=== PATIENT | female | born 1995 | race Caucasian/White ===

== ENCOUNTER 2017-12-24 23:46 | Outpatient (CLI) | payer OTHER ==
[2017-12-25 00:52] LABS: URINE AMPHETAMINES SCREEN NEGATIVE; URINE BARBITURATES SCREEN NEGATIVE; URINE BENZODIAZEPINES SCREEN NEGATIVE; URINE COCAINE SCREEN NEGATIVE; URINE MARIJUANA (THC) SCREEN NEGATIVE; URINE METHADONE SCREEN NEGATIVE; URINE PHENCYCLIDINE SCREEN NEGATIVE
[2017-12-25 00:55] LABS: AMORPHOUS SEDIMENT,URINE TRACE /HPF; APPEARANCE,URINE CLOUDY; BILIRUBIN,URINE NEGATIVE (NEGATIVE); COLOR,URINE YELLOW; GLUCOSE, URINE 50 mg/dL (NEGATIVE); KETONES,URINE NEGATIVE (NEGATIVE); LEUKOCYTE ESTERASE,URINE NEGATIVE (NEGATIVE); NITRITE,URINE NEGATIVE (NEGATIVE); PROTEIN,URINE NEGATIVE (NEGATIVE); URINE SPECIFIC GRAVITY 1.021
[2017-12-25] MEDS: RINGERS SOLUTION,LACTATED 1,000 ML IV PRN ×2 (01:02→01:31)
[2017-12-25] MEDS ORDERED: TERBUTALINE SULFATE INJ/PF 1 MG/1 ML SDV SUBCUT ONE (01:37)
[2017-12-25] MEDS ORDERED: TERBUTALINE SULFATE INJ/PF 1 MG/1 ML SDV ONE (01:42)
--- NOTE | 2017-12-25 02:12 | Non Stress Test Report ---
Non Stress Test Datetime Report Generated by CPN: 12/25/2017 02:12 DEMOGRAPHIC Test Number: 1 EGA NST: 34.0 INDICATION Indication for Study: Ordered by Provider URINE RESULTS Urine Protein, NST: Negative Urine Ketones - NST: Negative Urine Glucose - NST: Positive Urine Blood - NST: Positive MONITORING Monitor Explained: Monitor Explained; Test Explained; Patient Verbalized Understanding Time on Monitor: 12/25/2017 00:15 Time off Monitor: 12/25/2017 01:00 NST Duration: 45 NST INTERVENTIONS NST Interventions: PO Hydration; IV Fluids; Reposition Patient Physician Notified NST: Dr. Sanchez BABY A: [id number] BABY A Movement : Present Contraction Frequency : 2-3 FHR Baseline : 135 Accelerations : 15X15 Decelerations : None Variability : Moderate 6-25bpm NST Review: Meets Criteria for Reactive NST NST Review and Verified By : GÉNESIS Donis NST Results: Reactive NST REPORT Report Trigger: Send Report
--- NOTE | 2017-12-25 02:50 | RADIOLOGY REPORT (SQ) ---
EXAM DESCRIPTION: US LIMITED COMPLETED DATE/TME: 12/25/2017 00:00 CLINICAL HISTORY: 22 years Female, sono for presentation, cervical length due to PTL Comparison: None. TECHNIQUE/LIMITATION: Targeted OB sonogram for requested parameters only. FINDINGS: Presentation: Vertex Cervical length: 4.3-cm. Closed appearance. Nabothian cysts. heart rate: 132 bpm. IMPRESSION: Targeted OB sonogram for requested parameters
[2017-12-25 03:56] LABS: CHLAM PCR NOT DETECTED (NOT DETECT); GON PCR NOT DETECTED (NOT DETECT)
== END 2017-12-25 05:14 | disposition home or self-care (01) ==
LOC: LC 23:46
PROVIDERS: ATTEND Obstetrics & Gynecology Gynecology
PROC: 4A1HXCZ Monitoring of Products of Conception, Cardiac Rate, External Approach (ICD-10-PCS; principal; 2017-12-24)
DX: O47.03 False labor before 37 completed weeks of gestation, third trimester (principal); O99.283 Endocrine, nutritional and metabolic diseases complicating pregnancy, third trimester; E86.0 Dehydration; Z3A.34 34 weeks gestation of pregnancy
CPT/HCPCS: 59025; 94760; 81001; 87081; 80307; 87491; 87591; 76815; J3105

== ENCOUNTER 2017-12-25 21:15 | Outpatient (CLI) | payer OTHER ==
[2017-12-25 21:51] LABS: APPEARANCE,URINE SLIGHTLY-CLOUDY; BILIRUBIN,URINE NEGATIVE (NEGATIVE); COLOR,URINE YELLOW; GLUCOSE, URINE 150 mg/dL (NEGATIVE); KETONES,URINE NEGATIVE (NEGATIVE); LEUKOCYTE ESTERASE,URINE TRACE (NEGATIVE); NITRITE,URINE NEGATIVE (NEGATIVE); PROTEIN,URINE NEGATIVE (NEGATIVE); URINE SPECIFIC GRAVITY 1.027
[2017-12-25 22:15] LABS: URINE AMPHETAMINES SCREEN NEGATIVE; URINE BARBITURATES SCREEN NEGATIVE; URINE BENZODIAZEPINES SCREEN NEGATIVE; URINE COCAINE SCREEN NEGATIVE; URINE MARIJUANA (THC) SCREEN NEGATIVE; URINE METHADONE SCREEN NEGATIVE; URINE PHENCYCLIDINE SCREEN NEGATIVE
[2017-12-25] MEDS ORDERED: HYDROXYZINE PAMOATE 50 MG CAPSULE ONE (22:43)
[2017-12-25] MEDS ORDERED: HYDROXYZINE PAMOATE 50 MG CAPSULE PO ONE (22:44)
--- NOTE | 2017-12-25 22:57 | Non Stress Test Report ---
Non Stress Test Datetime Report Generated by CPN: 12/25/2017 22:57 DEMOGRAPHIC Test Number: 2 EGA NST: 34.0 INDICATION Indication for Study: Ordered by Provider URINE RESULTS Urine Protein, NST: Negative Urine Ketones - NST: Negative Urine Glucose - NST: Positive Urine Blood - NST: Negative MONITORING Monitor Explained: Monitor Explained; Test Explained; Patient Verbalized Understanding Time on Monitor: 12/25/2017 21:35 Time off Monitor: 12/25/2017 22:43 NST Duration: 68 NST INTERVENTIONS NST Interventions: PO Hydration; Reposition Patient Physician Notified NST: Dr. Sherman BABY A: [id number] BABY A Movement : Present Contraction Frequency : Irregular FHR Baseline : 135 Accelerations : 15X15 Decelerations : None Variability : Moderate 6-25bpm NST Review: Meets Criteria for Reactive NST NST Review and Verified By : GÉNESIS Donis NST Results: Reactive NST REPORT Report Trigger: Send Report
== END 2017-12-25 22:53 | disposition home or self-care (01) ==
LOC: LC 21:15
PROVIDERS: ATTEND Obstetrics & Gynecology
PROC: 4A1HXCZ Monitoring of Products of Conception, Cardiac Rate, External Approach (ICD-10-PCS; principal; 2017-12-25)
DX: O47.03 False labor before 37 completed weeks of gestation, third trimester (principal); O99.283 Endocrine, nutritional and metabolic diseases complicating pregnancy, third trimester; E86.0 Dehydration; Z3A.34 34 weeks gestation of pregnancy
CPT/HCPCS: 59025; 80307; 81001

== ENCOUNTER 2017-12-29 01:26 | Outpatient (CLI) | payer OTHER ==
[2017-12-29 01:58] LABS: APPEARANCE,URINE CLOUDY; BILIRUBIN,URINE NEGATIVE (NEGATIVE); COLOR,URINE YELLOW; GLUCOSE, URINE NEGATIVE (NEGATIVE); KETONES,URINE NEGATIVE (NEGATIVE); LEUKOCYTE ESTERASE,URINE NEGATIVE (NEGATIVE); NITRITE,URINE NEGATIVE (NEGATIVE); PROTEIN,URINE NEGATIVE (NEGATIVE); URINE SPECIFIC GRAVITY 1.015; UROBILINOGEN,URINE NEGATIVE mg/dL (<2.0)
[2017-12-29 02:12] LABS: URINE AMPHETAMINES SCREEN NEGATIVE; URINE BARBITURATES SCREEN NEGATIVE; URINE BENZODIAZEPINES SCREEN NEGATIVE; URINE COCAINE SCREEN NEGATIVE; URINE MARIJUANA (THC) SCREEN NEGATIVE; URINE METHADONE SCREEN NEGATIVE; URINE PHENCYCLIDINE SCREEN NEGATIVE
--- NOTE | 2017-12-29 04:00 | Non Stress Test Report ---
Non Stress Test Datetime Report Generated by CPN: 12/29/2017 04:00 DEMOGRAPHIC EGA NST: 34.4 INDICATION Indication for Study: Ordered by Provider MONITORING Monitor Explained: Monitor Explained; Test Explained; Patient Verbalized Understanding Time on Monitor: 12/29/2017 01:40 Time off Monitor: 12/29/2017 03:47 NST Duration: 127 NST INTERVENTIONS NST Interventions: PO Hydration; IV Fluids; Reposition Patient Physician Notified NST: Dr. Sanchez BABY A: [id number] BABY A Movement : Present Contraction Frequency : 2-10 FHR Baseline : 120 Accelerations : 15X15 Decelerations : None Variability : Moderate 6-25bpm NST Review: Meets Criteria for Reactive NST NST Review and Verified By : Marco Álvarez RN Results: Reactive NST REPORT Report Trigger: Send Report
== END 2017-12-29 03:52 | disposition home or self-care (01) ==
LOC: LC 01:26
PROVIDERS: ATTEND Obstetrics & Gynecology Gynecology
PROC: 4A1HXCZ Monitoring of Products of Conception, Cardiac Rate, External Approach (ICD-10-PCS; principal; 2017-12-29)
DX: O47.03 False labor before 37 completed weeks of gestation, third trimester (principal); Z3A.34 34 weeks gestation of pregnancy
CPT/HCPCS: 59025; 80307; 81001

== ENCOUNTER 2018-01-03 20:00 | Outpatient (CLI) | payer OTHER ==
[2018-01-03 20:37] LABS: APPEARANCE,URINE CLOUDY; BILIRUBIN,URINE NEGATIVE (NEGATIVE); COLOR,URINE YELLOW; GLUCOSE, URINE >=500 mg/dL (NEGATIVE); KETONES,URINE NEGATIVE (NEGATIVE); LEUKOCYTE ESTERASE,URINE MODERATE (NEGATIVE); NITRITE,URINE NEGATIVE (NEGATIVE); PROTEIN,URINE 30 mg/dL (NEGATIVE); URINE SPECIFIC GRAVITY 1.018
[2018-01-03 21:02] LABS: URINE AMPHETAMINES SCREEN NEGATIVE; URINE BARBITURATES SCREEN NEGATIVE; URINE BENZODIAZEPINES SCREEN NEGATIVE; URINE COCAINE SCREEN NEGATIVE; URINE MARIJUANA (THC) SCREEN NEGATIVE; URINE METHADONE SCREEN NEGATIVE; URINE PHENCYCLIDINE SCREEN NEGATIVE
--- NOTE | 2018-01-03 21:38 | Non Stress Test Report ---
Non Stress Test Datetime Report Generated by CPN: 01/03/2018 21:37 DEMOGRAPHIC Test Number: 3 EGA NST: 35.2 INDICATION Indication for Study: Ordered by Provider URINE RESULTS Urine Protein, NST: Positive Urine Ketones - NST: Negative Urine Glucose - NST: Positive Urine Blood - NST: Negative MONITORING Monitor Explained: Monitor Explained; Test Explained; Patient Verbalized Understanding Time on Monitor: 01/03/2018 20:13 Time off Monitor: 01/03/2018 20:59 NST Duration: 46 NST INTERVENTIONS NST Interventions: PO Hydration; Reposition Patient Physician Notified NST: Dr. Sears BABY A: [id number] BABY A Movement : Present Contraction Frequency : Irregular FHR Baseline : 150 Accelerations : 15X15 Decelerations : None Variability : Moderate 6-25bpm NST Review: Meets Criteria for Reactive NST NST Review and Verified By : Tatyana Gomez RN NST Results: Reactive NST REPORT Report Trigger: Send Report
== END 2018-01-03 21:04 | disposition home or self-care (01) ==
LOC: LC 20:00
PROVIDERS: ATTEND Student in an Organized Health Care Education/Training Program
PROC: 4A1HXCZ Monitoring of Products of Conception, Cardiac Rate, External Approach (ICD-10-PCS; principal; 2018-01-03)
DX: O47.03 False labor before 37 completed weeks of gestation, third trimester (principal); O26.893 Other specified pregnancy related conditions, third trimester; R07.89 Other chest pain; R06.02 Shortness of breath; Z3A.35 35 weeks gestation of pregnancy
CPT/HCPCS: 59025; 80307; 81005; 94760

== ENCOUNTER 2018-01-03 21:15 | Emergency (ER) | payer OTHER ==
--- NOTE | 2018-01-03 22:29 | ER Document Report ---
ED Medical Screen (RME) - General Chief Complaint: Chest Tightness Stated Complaint: CHEST TIGHTNESS Time Seen by Provider: 01/03/18 22:25 Notes: 22-year-old female, 35 weeks , was upstairs having a labor check because of having contractions but was sent down for evaluation because she began having episodes where she would suddenly feel tightness in her chest, lightheaded, she would feel like her heart was racing and like she felt a little bit short of breath. This lasts for 1-2 minutes and then resolves. Patient states she has had several of these today. Denies history of the same. No current symptoms. Patient does not think that the symptoms coincide with a uterine contraction but she is not certain. Denies smoking, recreational drugs, or any medical history other than 1 previous . TRAVEL OUTSIDE OF THE [place] IN LAST 30 DAYS: No - Related Data Allergies/Adverse Reactions: No Known Allergies Allergy (Verified 01/03/18 21:38) Physical Exam - Vital signs Vitals: Temp Pulse Resp BP Pulse Ox 97.9 F 109 H 14 111/66 98 01/03/18 21:25 01/03/18 21:25 01/03/18 21:25 01/03/18 21:25 01/03/18 21:25 - Cardiovascular Rhythm: Regular, Tachycardia - Borderline tachycardia Heart sounds: Normal auscultation, S1 appreciated, S2 appreciated Course - Vital Signs Vital signs: Temp Pulse Resp BP Pulse Ox 97.9 F 109 H 14 111/66 98 01/03/18 21:25 01/03/18 21:25 01/03/18 21:25 01/03/18 21:25 01/03/18 21:25 Doctor's Discharge - Discharge Referrals: TENZIN ABBASI MD [Primary Care Provider] - Follow up as needed
[2018-01-03 23:36] LABS: ABSOLUTE LYMPHOCYTES (AUTO) 1.5 10^3/uL (0.5-4.7); ABSOLUTE MONOCYTES (AUTO) 1.3 10^3/uL (0.1-1.4); ABSOLUTE NEUT (AUTO) 9.4 10^3/uL (1.7-8.2); BASOPHILS % (AUTO) 0.3 % (0-2); EOSINOPHILS % (AUTO) 0.4 % (0-6); HEMATOCRIT 32.9 % (36.0-47.0); LYMPHOCYTES % (AUTO) 11.9 % (13-45); MEAN CORPUSCULAR HGB CONC 33.5 g/dL (32.0-36.0); MEAN CORPUSCULAR VOLUME 78 fl (80-97); MONOCYTES % (AUTO) 10.3 % (3-13); PLATELET COUNT 243 10^3/uL (150-450); RED BLOOD COUNT 4.24 10^6/uL (3.72-5.28); SEGMENTED NEUTROPHILS % (AUTO) 77.1 % (42-78); TOTAL CELLS COUNTED % (AUTO) 100 %; WHITE BLOOD COUNT 12.2 10^3/uL (4.0-10.5)
[2018-01-03 23:42] LABS: ALANINE AMINOTRANSFERASE 15 U/L (9-52); ALBUMIN 3.1 g/dL (3.5-5.0); ALKALINE PHOSPHATASE 62 U/L (38-126); ANION GAP 10 (5-19); ASPARTATE AMINO TRANSFERASE 15 U/L (14-36); BILIRUBIN,DIRECT 0.2 mg/dL (0.0-0.4); BILIRUBIN,TOTAL 0.3 mg/dL (0.2-1.3); BLOOD UREA NITROGEN 3 mg/dL (7-20); CALCIUM 8.9 mg/dL (8.4-10.2); CARBON DIOXIDE 20 mmol/L (22-30); CHLORIDE 108 mmol/L (98-107); GLUCOSE 102 mg/dL (75-110); POTASSIUM 3.9 mmol/L (3.6-5.0); SODIUM 138.1 mmol/L (137-145)
[2018-01-03 23:59] LABS: FREE T4 (FREE THYROXINE) 0.8 ng/dL (0.78-2.19)
[2018-01-04 00:13] LABS: THYROID STIMULATING HORMONE 1.02 uIU/mL (0.47-4.68)
--- NOTE | 2018-01-04 00:58 | RADIOLOGY REPORT (SQ) ---
PROCEDURE: XR CHEST 1 VIEW HISTORY: cp COMPARISON: None TECHNIQUE: Single projection of the chest was done. This study was done on 01/04/2018 at 12:42 AM FINDINGS: Bilateral metallic nipple rings are noted . There are no discrete airspace infiltrates, pneumothoraces or pleural effusions. The pulmonary vascularity is normal. The cardiomediastinal silhouette is unremarkable for patient's age and sex. IMPRESSION: There is no acute pleural-parenchymal process seen in the imaged lung yancey. Location of Interpretation: [facility]
--- NOTE | 2018-01-04 01:09 | ER Document Report ---
ED General - General Chief Complaint: Chest Tightness Stated Complaint: CHEST TIGHTNESS Time Seen by Provider: 01/03/18 22:25 Notes: Patient is a 22 year old female at 35 weeks who presents with complaints of intermittent chest tightness and continuous shortness of breath that started shortly after she woke up today. The patient was seen in labor and delivery and then transferred down to the emergency department after being cleared from a labor perspective. The patient reports that the chest tightness is intermittent, tightening, stabbing sensation to her central chest. These episodes last for several minutes and then spontaneously resolved. She does however note that her shortness of breath has otherwise been constant and is not necessarily related to her chest discomfort. She denies any unilateral leg swelling, hemoptysis or syncope. She denies any history of similar symptoms during this or her previous . She states that she did not have the symptoms yesterday. She has no history of DVT or pulmonary embolus. She denies any vaginal bleeding, vaginal discharge, but states that she has had nausea. TRAVEL OUTSIDE OF THE [place] IN LAST 30 DAYS: No - Related Data Allergies/Adverse Reactions: No Known Allergies Allergy (Verified 01/03/18 21:38) Past Medical History - General Information source: Patient - Social History Smoking Status: Former Smoker Chew tobacco use (# tins/day): No Frequency of alcohol use: None Drug Abuse: None Lives with: Spouse/Significant other Family History: Reviewed & Not Pertinent Patient has suicidal ideation: No Patient has homicidal ideation: No Renal/ Medical History: Denies: Hx Peritoneal Dialysis Past Surgical History: Reports: Hx Genitourinary Surgery - cyst removed, Hx Tonsillectomy Review of Systems - Review of Systems Notes: Constitutional: Negative for fever. HENT: Negative for sore throat. Eyes: Negative for visual changes. Cardiovascular: Positive for chest pain. Respiratory: Positive for shortness of breath. Gastrointestinal: Negative for abdominal pain, vomiting or diarrhea. Genitourinary: Negative for dysuria. Musculoskeletal: Negative for back pain. Skin: Negative for rash. Neurological: Negative for headaches, weakness or numbness. 10 point ROS negative except as marked above and in HPI. Physical Exam - Vital signs Vitals: Temp Pulse Resp BP Pulse Ox 97.9 F 109 H 14 111/66 98 01/03/18 21:25 01/03/18 21:25 01/03/18 21:25 01/03/18 21:25 01/03/18 21:25 Interpretation: Tachycardic - Resolved at the time of my assessment Notes: PHYSICAL EXAMINATION: GENERAL: Well-appearing, well-nourished and in no acute distress. HEAD: Atraumatic, normocephalic. EYES: Pupils equal round and reactive to light, extraocular movements intact, sclera anicteric, conjunctiva are normal. ENT: nares patent, oropharynx clear without exudates. Moist mucous membranes. NECK: Normal range of motion, supple without lymphadenopathy LUNGS: Breath sounds clear to auscultation bilaterally and equal. No wheezes rales or rhonchi. HEART: Regular rate and rhythm without murmurs ABDOMEN: Soft, gravid uterus, nontender, normoactive bowel sounds. No guarding , no rebound. No masses appreciated. EXTREMITIES: Normal range of motion, no pitting or edema. No cyanosis. NEUROLOGICAL: No focal neurological deficits. Moves all extremities spontaneously and on command. PSYCH: Normal mood, normal affect. SKIN: Warm, Dry, normal turgor, no rashes or lesions noted. Course - Re-evaluation Re-evalutation: 01/04/18 01:07 Patient presents with complaints of shortness of breath with intermittent associated chest tightness in the context of being 35 weeks . The patient was noted to be tachycardic in triage and during her time during her labor check in labor and delivery. On assessment, the patient is overall nontoxic in appearance, heart rate is currently 96 bpm counted myself at the bedside. She has no unilateral leg swelling. However, the patient is extremely elevated in terms of risk for pulmonary embolus and states repeatedly during my assessment without prompting that she is quite short of breath, feels like she cannot catch her breath, and also notes that she can hardly walk to the restroom without becoming short of breath. She denies ever having felt like this during this or her previous . Her workup including EKG, chest x-ray, labs are otherwise benign. At this point I am quite concerned for the possibility of acute pulmonary embolus given lack of an alternative consideration for why she is having symptoms. She has no abdominal discomfort to suggest a biliary pathology. LFTs are normal. No infectious process identified on chest x-ray and no evidence of a pneumothorax. EKG likewise unremarkable and ACS does not fit with her clinical history. Patient has consented to CTA, understands the risks of radiation exposure to both her as well as her unborn child. 01/04/18 04:09 CTA without any evidence of acute pulmonary embolus although the radiologist is clear to state that he believes there was an adequate enhancement of the pulmonary arterial system. Patient's tachycardia has remained resolved. I have informed the patient of the findings of the CT scan and have encouraged rapid return to the emergency department for any new or worsening symptoms. At this time will discharge with return precautions and follow-up recommendations. Verbal discharge instructions given a the bedside and opportunity for questions given. Medication warnings reviewed. Patient is in agreement with this plan and has verbalized understanding of return precautions and the need for primary care follow-up in the next 24-72 hours. - Vital Signs Vital signs: Temp Pulse Resp BP Pulse Ox 98.4 F 88 20 103/58 L 97 01/04/18 03:12 01/04/18 03:12 01/04/18 03:12 01/04/18 03:12 01/04/18 03:12 - Laboratory Result Diagrams: 01/03/18 22:55 01/03/18 22:55 Laboratory results interpreted by me: 01/03/18 01/03/18 22:55 22:55 WBC 12.2 H Hgb 11.0 L Hct 32.9 L MCV 78 L MCH 26.0 L Lymphocytes % 11.9 L Absolute Neutrophils 9.4 H Chloride 108 H Carbon Dioxide 20 L BUN 3 L Creatinine 0.37 L Total Protein 6.0 L Albumin 3.1 L - Diagnostic Test Radiology reviewed: Image reviewed, Reports reviewed Radiology results interpreted by me: 01/04/18 01:06 Chest x-ray: No acute infiltrate or pneumothorax - EKG Interpretation by Me Additional EKG results interpreted by me: 01/04/18 01:07 Sinus rhythm. Rate 96. No ST elevations or depressions. QTC is 430. Discharge - Discharge Clinical Impression: Shortness of breath, Third trimester Chest pain Qualifiers: Chest pain type: unspecified Qualified Code(s): R07.9 - Chest pain, unspecified Condition: Stable Disposition: HOME, SELF-CARE Admitting Provider: Pediatric Hospitalist Additional Instructions: You were seen today for concerns of shortness of breath and chest discomfort. Your workup today is normal without any obvious cause for why you are having recurrent symptoms. This may be related to your . CT scan of your chest does not show any evidence of a blood clot in your lungs. Please return to the ED immediately if you have worsening of your symptoms, vomiting, being coughing blood, pass out, or have any other symptoms that are concerning to you. Referrals: TENZIN ABBASI MD [Primary Care Provider] - Follow up as needed
--- NOTE | 2018-01-04 04:06 | RADIOLOGY REPORT (SQ) ---
EXAM DESCRIPTION: CT CHEST ANGIOGRAPHY WITHOUT THEN WITH IV CONTRAST COMPLETED DATE/TME: 01/04/2018 01:03 CLINICAL HISTORY: 22 years Female, eval pe. 35 WKS , SOB. Comparison: CR, 01/04/2018 at 12:42 AM Technique: IV contrast. Coronal and sagittal reformat. 3d reconstruction. This exam was performed according to our departmental dose-optimization program, which includes automated exposure control, adjustment of the mA and/or kV according to patient size and/or use of iterative reconstruction technique.[facility]: Dose Right [facility]: CareDose [facility]: Dose Right [facility]: Teradose 4D [facility]: BDA LIMITATIONS: There is inadequate enhancement of the pulmonary arterial system. Findings: There is inadequate enhancement of the pulmonary arterial system significantly decreasing sensitivity of this exam. There is no gross evidence of pulmonary embolus. Consider repeat, alternative, or surveillance investigation as clinically warranted.No right ventricular strain. Clear lungs. Inferior neck, axillae, mediastinum, lungs, airway, lymphatics, heart, vasculature, CTA of the aorta, upper abdomen, and musculoskeleton appear unremarkable. Impression: 1. There is inadequate enhancement of the pulmonary arterial system significantly decreasing sensitivity of this exam. There is no gross evidence of pulmonary embolus. Consider repeat, alternative, or surveillance investigation as clinically warranted. 2. No acute cardiopulmonary findings.
[2018-01-04 04:40] VITALS: BP 108/64
--- NOTE | 2018-01-04 07:29 | EKG REPORT ---
SEVERITY:- NORMAL ECG - SINUS RHYTHM : Confirmed by: Luis Samuels MD 04-Jan-2018 07:29:33
== END 2018-01-04 04:40 | disposition home or self-care (01) ==
LOC: ER 21:15
DX: O26.93 Pregnancy related conditions, unspecified, third trimester (principal); R07.9 Chest pain, unspecified; R06.02 Shortness of breath; Z3A.35 35 weeks gestation of pregnancy
CPT/HCPCS: 36415; 71045; 71275; 80053; 83735; 84439; 84443; 85025; 93005; 93010; 99285

== ENCOUNTER 2018-01-08 02:41 | Outpatient (CLI) | payer OTHER ==
[2018-01-08 03:08] LABS: APPEARANCE,URINE CLOUDY; BILIRUBIN,URINE NEGATIVE (NEGATIVE); COLOR,URINE YELLOW; GLUCOSE, URINE NEGATIVE (NEGATIVE); KETONES,URINE NEGATIVE (NEGATIVE); LEUKOCYTE ESTERASE,URINE SMALL (NEGATIVE); NITRITE,URINE NEGATIVE (NEGATIVE); PROTEIN,URINE NEGATIVE (NEGATIVE); URINE SPECIFIC GRAVITY 1.017
[2018-01-08 03:29] LABS: URINE AMPHETAMINES SCREEN NEGATIVE; URINE BARBITURATES SCREEN NEGATIVE; URINE BENZODIAZEPINES SCREEN NEGATIVE; URINE COCAINE SCREEN NEGATIVE; URINE MARIJUANA (THC) SCREEN NEGATIVE; URINE METHADONE SCREEN NEGATIVE; URINE PHENCYCLIDINE SCREEN NEGATIVE
--- NOTE | 2018-01-08 04:40 | Non Stress Test Report ---
Non Stress Test Datetime Report Generated by CPN: 01/08/2018 04:40 DEMOGRAPHIC EGA NST: 36.0 INDICATION Indication for Study: labor URINE RESULTS Urine Protein, NST: Negative Urine Ketones - NST: Negative Urine Glucose - NST: Negative Urine Blood - NST: Negative MONITORING Monitor Explained: Monitor Explained; Test Explained; Patient Verbalized Understanding Time on Monitor: 01/08/2018 02:56 Time off Monitor: 01/08/2018 04:21 NST Duration: 85 NST INTERVENTIONS NST Interventions: None Physician Notified NST: Dr. Sanchez BABY A: [id number] BABY A Movement : Present Contraction Frequency : 3-5 FHR Baseline : 155 Accelerations : 15X15 Decelerations : None Variability : Moderate 6-25bpm NST Review: Meets Criteria for Reactive NST NST Review and Verified By : GÉNESIS Donis NST Results: Reactive NST REPORT Report Trigger: Send Report
== END 2018-01-08 04:33 | disposition home or self-care (01) ==
LOC: LC 02:41
PROVIDERS: ATTEND Obstetrics & Gynecology Gynecology
PROC: 4A1HXCZ Monitoring of Products of Conception, Cardiac Rate, External Approach (ICD-10-PCS; principal; 2018-01-08)
DX: O47.03 False labor before 37 completed weeks of gestation, third trimester (principal); Z3A.36 36 weeks gestation of pregnancy
CPT/HCPCS: 59025; 80307; 81005; 94760

== ENCOUNTER 2018-01-09 08:44 | Outpatient (CLI) | payer OTHER ==
[2018-01-09 09:29] LABS: APPEARANCE,URINE CLEAR; BILIRUBIN,URINE NEGATIVE (NEGATIVE); COLOR,URINE YELLOW; GLUCOSE, URINE NEGATIVE (NEGATIVE); KETONES,URINE NEGATIVE (NEGATIVE); LEUKOCYTE ESTERASE,URINE SMALL (NEGATIVE); NITRITE,URINE NEGATIVE (NEGATIVE); PROTEIN,URINE NEGATIVE (NEGATIVE); URINE SPECIFIC GRAVITY 1.008; UROBILINOGEN,URINE NEGATIVE mg/dL (<2.0)
[2018-01-09 09:41] LABS: URINE AMPHETAMINES SCREEN NEGATIVE; URINE BARBITURATES SCREEN NEGATIVE; URINE BENZODIAZEPINES SCREEN NEGATIVE; URINE COCAINE SCREEN NEGATIVE; URINE MARIJUANA (THC) SCREEN NEGATIVE; URINE METHADONE SCREEN NEGATIVE; URINE PHENCYCLIDINE SCREEN NEGATIVE
--- NOTE | 2018-01-09 10:16 | Non Stress Test Report ---
Non Stress Test Datetime Report Generated by CPN: 01/09/2018 10:15 DEMOGRAPHIC Test Number: 1 EGA NST: 36.1 INDICATION Indication for Study: Ordered by Provider Indication for Study (NST) Other: LC MONITORING Monitor Explained: Monitor Explained; Test Explained; Patient Verbalized Understanding Time on Monitor: 01/09/2018 08:57 Time off Monitor: 01/09/2018 09:51 NST Duration: 54 NST INTERVENTIONS NST Interventions: PO Hydration Physician Notified NST: Sherman BABY A: [id number] BABY A Movement : Present Contraction Frequency : irregular FHR Baseline : 130 Accelerations : 15X15 Decelerations : None Variability : Moderate 6-25bpm NST Review: Meets Criteria for Reactive NST NST Review and Verified By : D Bellavance RN NST Results: Reactive NST REPORT Report Trigger: Send Report
== END 2018-01-09 10:19 | disposition home or self-care (01) ==
LOC: LC 08:44
PROVIDERS: ATTEND Student in an Organized Health Care Education/Training Program
PROC: 4A1HXCZ Monitoring of Products of Conception, Cardiac Rate, External Approach (ICD-10-PCS; principal; 2018-01-09)
DX: O47.03 False labor before 37 completed weeks of gestation, third trimester (principal); Z3A.36 36 weeks gestation of pregnancy
CPT/HCPCS: 59025; 80307; 81001

== ENCOUNTER 2018-01-11 00:58 | Outpatient (CLI) | payer OTHER ==
[2018-01-11 01:47] LABS: APPEARANCE,URINE CLOUDY; BILIRUBIN,URINE NEGATIVE (NEGATIVE); COLOR,URINE YELLOW; GLUCOSE, URINE 50 mg/dL (NEGATIVE); KETONES,URINE NEGATIVE (NEGATIVE); LEUKOCYTE ESTERASE,URINE SMALL (NEGATIVE); NITRITE,URINE NEGATIVE (NEGATIVE); PROTEIN,URINE NEGATIVE (NEGATIVE)
[2018-01-11 02:54] LABS: URINE AMPHETAMINES SCREEN NEGATIVE; URINE BARBITURATES SCREEN NEGATIVE; URINE BENZODIAZEPINES SCREEN NEGATIVE; URINE COCAINE SCREEN NEGATIVE; URINE MARIJUANA (THC) SCREEN NEGATIVE; URINE METHADONE SCREEN NEGATIVE; URINE PHENCYCLIDINE SCREEN NEGATIVE
== END 2018-01-11 02:09 | disposition home or self-care (01) ==
LOC: LC 00:58
PROVIDERS: ATTEND Obstetrics & Gynecology
PROC: 4A1HXCZ Monitoring of Products of Conception, Cardiac Rate, External Approach (ICD-10-PCS; principal; 2018-01-11)
DX: O47.03 False labor before 37 completed weeks of gestation, third trimester (principal); Z3A.36 36 weeks gestation of pregnancy
CPT/HCPCS: 59025; 80307; 81005; 84112

== ENCOUNTER 2018-01-12 16:56 | Outpatient (CLI) | payer OTHER ==
--- NOTE | 2018-01-12 17:11 | Non Stress Test Report ---
Non Stress Test Datetime Report Generated by CPN: 01/12/2018 17:11 DEMOGRAPHIC EGA NST: 36.3 INDICATION Indication for Study: Ordered by Provider Indication for Study (NST) Other: LC MONITORING Monitor Explained: Monitor Explained; Test Explained; Patient Verbalized Understanding Time on Monitor: 01/11/2018 01:18 Time off Monitor: 01/11/2018 02:03 NST Duration: 45 NST INTERVENTIONS NST Interventions: PO Hydration; Reposition Patient Physician Notified NST: Talavera BABY A: [id number] BABY A Movement : Present Contraction Frequency : x2 FHR Baseline : 130 Accelerations : 15X15 Decelerations : None Variability : Moderate 6-25bpm NST Review: Meets Criteria for Reactive NST NST Review and Verified By : GÉNESIS Donis NST Results: Reactive NST REPORT Report Trigger: Send Report
[2018-01-12 17:50] LABS: APPEARANCE,URINE SLIGHTLY-CLOUDY; BILIRUBIN,URINE NEGATIVE (NEGATIVE); COLOR,URINE YELLOW; GLUCOSE, URINE NEGATIVE (NEGATIVE); KETONES,URINE NEGATIVE (NEGATIVE); LEUKOCYTE ESTERASE,URINE SMALL (NEGATIVE); NITRITE,URINE NEGATIVE (NEGATIVE); PROTEIN,URINE NEGATIVE (NEGATIVE); URINE SPECIFIC GRAVITY 1.011; UROBILINOGEN,URINE NEGATIVE mg/dL (<2.0)
[2018-01-12 18:04] LABS: URINE AMPHETAMINES SCREEN NEGATIVE; URINE BARBITURATES SCREEN NEGATIVE; URINE BENZODIAZEPINES SCREEN NEGATIVE; URINE COCAINE SCREEN NEGATIVE; URINE MARIJUANA (THC) SCREEN NEGATIVE; URINE METHADONE SCREEN NEGATIVE; URINE PHENCYCLIDINE SCREEN NEGATIVE
--- NOTE | 2018-01-12 19:35 | Non Stress Test Report ---
Non Stress Test Datetime Report Generated by CPN: 01/12/2018 19:35 DEMOGRAPHIC EGA NST: 36.4 INDICATION Indication for Study: Ordered by Provider MONITORING Monitor Explained: Monitor Explained; Test Explained; Patient Verbalized Understanding Time on Monitor: 01/12/2018 17:22 Time off Monitor: 01/12/2018 19:04 NST Duration: 102 NST INTERVENTIONS NST Interventions: None Physician Notified NST: Dr. Vivek BABY A Movement : Present Contraction Frequency : 1-3 FHR Baseline : 135 Accelerations : 15X15 Decelerations : None Variability : Moderate 6-25bpm NST Review: Meets Criteria for Reactive NST NST Review and Verified By : Argelia Limon RN NST Results: Reactive NST REPORT Report Trigger: Send Report
== END 2018-01-12 19:35 | disposition home or self-care (01) ==
LOC: LC 16:56
PROVIDERS: ATTEND Obstetrics & Gynecology
PROC: 4A1HXCZ Monitoring of Products of Conception, Cardiac Rate, External Approach (ICD-10-PCS; principal; 2018-01-12)
DX: O36.8130 Decreased fetal movements, third trimester, not applicable or unspecified (principal); Z3A.36 36 weeks gestation of pregnancy
CPT/HCPCS: 59025; 80307; 81001

== ENCOUNTER 2018-01-17 10:16 | Outpatient (CLI) | payer OTHER ==
[2018-01-17] MEDS ORDERED: RINGERS SOLUTION,LACTATED 1,000 ML IV ONE ×2 (10:39→12:00)
[2018-01-17] MEDS ORDERED: ONDANSETRON ODT 4 MG TAB (6 TAB/ER DISP) PO PRN (10:40)
[2018-01-17] MEDS ORDERED: ONDANSETRON 4 MG TAB.RAPDIS ONE (10:43)
[2018-01-17] MEDS ORDERED: ONDANSETRON 4 MG TAB.RAPDIS PO ONE (11:00)
--- NOTE | 2018-01-17 11:30 | Non Stress Test Report ---
Non Stress Test Datetime Report Generated by CPN: 01/17/2018 11:30 DEMOGRAPHIC EGA NST: 37.2 INDICATION Indication for Study: Decreased Movement; Ordered by Provider MONITORING Monitor Explained: Monitor Explained; Test Explained; Patient Verbalized Understanding Time on Monitor: 01/17/2018 10:31 Time off Monitor: 01/17/2018 11:24 NST Duration: 53 NST INTERVENTIONS NST Interventions: PO Hydration; Reposition Patient Physician Notified NST: Poole, CNM BABY A: [id number] BABY A Movement : Present Contraction Frequency : 3-4 with irritability FHR Baseline : 135 Accelerations : 15X15 Decelerations : None Variability : Moderate 6-25bpm NST Review: Meets Criteria for Reactive NST NST Review and Verified By : ERICKSON Pack Results: Reactive NST REPORT Report Trigger: Send Report
[2018-01-17 11:36] LABS: AMORPHOUS SEDIMENT,URINE 1+ /HPF; APPEARANCE,URINE TURBID; BILIRUBIN,URINE SMALL (NEGATIVE); COLOR,URINE YELLOW; GLUCOSE, URINE 50 mg/dL (NEGATIVE); KETONES,URINE NEGATIVE (NEGATIVE); LEUKOCYTE ESTERASE,URINE SMALL (NEGATIVE); NITRITE,URINE NEGATIVE (NEGATIVE); PROTEIN,URINE 100 mg/dL (NEGATIVE); URINE SPECIFIC GRAVITY 1.032
[2018-01-17 12:01] LABS: URINE AMPHETAMINES SCREEN NEGATIVE; URINE BARBITURATES SCREEN NEGATIVE; URINE BENZODIAZEPINES SCREEN NEGATIVE; URINE COCAINE SCREEN NEGATIVE; URINE MARIJUANA (THC) SCREEN NEGATIVE; URINE METHADONE SCREEN NEGATIVE; URINE PHENCYCLIDINE SCREEN NEGATIVE
== END 2018-01-17 13:02 | disposition home or self-care (01) ==
LOC: LC 10:16
PROVIDERS: ATTEND Obstetrics & Gynecology Gynecology
PROC: 4A1HXCZ Monitoring of Products of Conception, Cardiac Rate, External Approach (ICD-10-PCS; principal; 2018-01-17)
DX: O47.1 False labor at or after 37 completed weeks of gestation (principal); Z3A.37 37 weeks gestation of pregnancy
CPT/HCPCS: 59025; 81001; 80307; 84112; S0119